=== PATIENT | female | born 1950 | race Caucasian/White ===

== ENCOUNTER 2017-10-21 00:21 | Emergency (ER) | payer MEDICARE ==
[~2017-10-21] VITALS: Ht 160 cm; Wt 55.8 kg
[~2017-10-21 00:21] MED LIST: ASPI-816 PO; CALC-635 PO; CALC600T63 PO; HYDR-2966 PO; LORA-802 PO; METH500T6 PO; OMEG-11 PO; SIMV-49 PO; SIMV-54 PO
--- NOTE | 2017-10-21 01:18 | ER Report ---
History and Physical Time Seen By MD: 01:16 Hx. of Stated Complaint: PT HAS SEVERE PAIN IN RIGHT UPPER LEG, KNEE, AND HIP. HPI/ROS CHIEF COMPLAINT: Right leg and back pain HISTORY OF PRESENT ILLNESS: 67-year-old female presents a to the ER complaining of severe right lower leg and back pain for 3 days. She recalls no traumatic injury. She states this feels similar to sciatica. She had in her left leg many years ago. She's been trying ibuprofen and heating pad without relief. She notes no skin rash or swollen joints. She notes pain with movement. She changes position he gets comfortable only for brief period before the pain begins to throb and become more intense. She notes no rash to suggest shingles. She notes no fever or chills. She denies a history of degenerative disc disease of her lumbar spine. REVIEW OF SYSTEMS: Respiratory: No cough, no dyspnea. Cardiovascular: No chest pain, no palpitations. Gastrointestinal: No vomiting, no abdominal pain. Musculoskeletal: As above Allergies: Coded Allergies: Penicillins (Unverified Allergy, Unknown, RASH, 10/21/17) Home Meds Active Scripts Prednisone 10 Mg Tab (PREDNISONE 10 MG TAB) 10 Mg Tablet, 10 MG PO QDAY Y for reduce inflammation, #5 1 tab daily for 5 days Prov:BOBGETY Dom DO 10/21/17 Oxycodone Hcl/Acetaminophen (PERCOCET 5-325 MG TABLET) 1 Each Tablet, 1 EACH PO Q4-6H Y for PAIN, #12 Prov:BOBELIDA Dom DO 10/21/17 Simvastatin (SIMVASTATIN) 20 Mg Tablet, 1 TAB PO HS, #90 TAB 1 Refill Prov:JOSS PICHARDO MD 05/23/17 Hydrochlorothiazide (HYDROCHLOROTHIAZIDE) 25 Mg Tablet, 1 TAB PO QAM, #90 TAB 3 Refills TAKE ONE TABLET BY MOUTH EVERY DAY Prov:JOSS PICHARDO MD 11/15/16 Reported Medications Calcium Carbonate (CALCIUM) 600 Mg Tablet, 600 MG PO 08/30/16 Methylcellulose (FIBER) 500 Mg Tablet, 1 TAB PO QDAY, TAB 10/20/15 Aspirin (Children's Aspirin) 81 Mg Tab.chew, 1 TAB PO DAILY, #100 TAB 4 Refills 09/29/14 [place]-3 Fatty Acids/Fish Oil (FISH OIL 1,000 MG CAPSULE) 1 Each Capsule, 1 EACH PO QDAY, CAPSULE 09/17/14 Past Medical/Surgical History Past Medical History Cardiovascular: Reports hx of: hyperlipidemia (was on statin in past. ) hypertension (Tx with hctz since early . ) Gastrointestinal: Reports hx of: diverticulosis Genitourinary: Reports hx of: urinary tract infection (12/25. tx with cipro. ESR and CRP were quite elevated. ) Events: REPORTS HX OF: Other events ([id number]. Annual in Mid-09/26. ) Past Surgical History HEENT: Reports hx of: tonsillectomy Gynecologic: Reports hx of: hysterectomy (KIRT/BSO 1995) Integumentary: Reports hx of: other integumentary surg (Skin lesion removed on L hand per Dr. Victoria.) Reviewed Nurses Notes: Yes Old Medical Records Reviewed: Yes Hx Smoking: No Smoking Status: Never Smoker Hx Substance Use Disorder: No Hx Alcohol Use: Yes Constitutional Vital Sign - Last 24 Hours 10/21/17 10/21/17 10/21/17 10/21/17 00:27 00:30 00:51 01:21 Temp 97.9 Pulse 75 84 66 Resp 16 B/P (MAP) 159/94 (115) 159/94 Pulse Ox 93 95 93 O2 Delivery Room Air 10/21/17 10/21/17 10/21/17 10/21/17 01:26 01:56 02:26 02:31 Pulse 72 62 67 70 Pulse Ox 95 92 86 90 10/21/17 10/21/17 02:42 02:46 B/P (MAP) 135/78 (97) Pulse Ox 88 Physical Exam General Appearance: The patient is alert, has no immediate need for airway protection and no current signs of toxicity. Vital signs stable, afebrile, mild distress Eyes: Pupils equal and round no injection. Respiratory: Chest is non tender, lungs are clear to auscultation. Cardiac: regular rate and rhythm Gastrointestinal: Abdomen is soft and non tender, no masses, bowel sounds normal. Musculoskeletal: Neck: Neck is supple and non tender. Back: There is no tenderness in the midline. There is no tenderness on palpation of the SI joints. There is no tenderness of the lumbar paraspinous musculature. There is notable tenderness over the course of the right sciatic nerve, there is no tenderness over the trochanter bursa area on the right. Patient has good range of motion of all joints without tenderness on compression or Aki maneuver. There is no knee joint effusion. Ankle is unremarkable. The right lower externally is neurovascularly intact. Extremities have full range of motion and are non tender. Skin: No rashes or lesions. DIFFERENTIAL DIAGNOSIS: After history and physical exam differential diagnosis was considered for back pain including but not limited to muscular pain, herniated disc, spine fracture, sciatica, intra-abdominal causes and urinary tract infection. Medical Decision Making ED Course/Re-evaluation ED Course Patient was admitted to an examination room. H&P was done. The differential diagnoses was considered. On clinical examination. Patient has significant right lower extremity pain for 3 days. She has a nonfocal neurologic examination. There is no inflammation of any of the joints or pain on movement of the joints. Symptoms are consistent with sciatica. Patient's medicated with Dilaudid 1 mg IM. Zofran sublingual and prednisone 40 mg by mouth. She is discharged home on low-dose prednisone course. She is advised ibuprofen and a prescription for Percocets provided for temporary pain relief. She is advised to follow-up with her primary care Dr Pichardo if unimproved in 3-5 days. Decision to Disposition Date: Oct 21, 2017 Decision to Disposition Time: 02:34 Depart Departure Latest Vital Signs Vital Signs Date Time Temp Pulse Resp B/P (MAP) Pulse Ox O2 Delivery O2 Flow Rate FiO2 10/21/17 02:46 88 10/21/17 02:42 135/78 (97) 10/21/17 02:31 70 10/21/17 00:30 97.9 16 Room Air Impression: Primary Impression: Right leg pain Additional Impression: Sciatica Condition: Improved Disposition: HOME OR SELF-CARE Referrals: JOSS PICHARDO MD (PCP) New Scripts Prednisone 10 Mg Tab (PREDNISONE 10 MG TAB) 10 Mg Tablet 10 MG PO QDAY Y for reduce inflammation, #5 1 tab daily for 5 days Prov: ELIDA ROJAS DO 10/21/17 Oxycodone Hcl/Acetaminophen (PERCOCET 5-325 MG TABLET) 1 Each Tablet 1 EACH PO Q4-6H Y for PAIN, #12 Prov: ELIDA ROJAS DO 10/21/17 Patient Instructions: Sciatica (ED) Additional Instructions: Continue ibuprofen 200 mg 3 tablets 3 times a day with food Apply heating pad to the affected area Follow-up with your primary care physician if unimproved in 3-5 days Problem Qualifiers Additional Impression: Sciatica Laterality: right Qualified Codes: M54.31 - Sciatica, right side ELIDA ROJAS DO Oct 21, 2017 01:18
[2017-10-21] MEDS ORDERED: HYDROmorphone(ER ONLY) 1 MG/ML IM ONE (01:35)
[2017-10-21] MEDS ORDERED: ONDANSETRON 4 MG ODT TABDP SL ONE (01:35)
[2017-10-21] MEDS ORDERED: predniSONE 20 MG TAB PO ONE (01:35)
[2017-10-21] MEDS ORDERED: oxyCODONE/ACETAMIN 5/325MG TH 2 TAB/BOTTLE PO ONE (02:35)
[2017-10-21] MEDS ORDERED: PRED-1 PO (02:38)
[2017-10-21] MEDS ORDERED: OXYC-865 PO (02:38)
[2017-10-21 02:42] VITALS: BP 135/78
[2017-10-22] MEDS ORDERED: CYCL10TA29 PO (11:59)
[2017-10-22] MEDS ORDERED: MELO-207 PO (11:59)
== END 2017-10-21 02:49 | disposition home or self-care (01) ==
LOC: ER 00:37
DX: M54.31 Sciatica, right side (principal)
CPT/HCPCS: 96372; 99283; J1170; J7512; Q0162; S0119

== ENCOUNTER → 2017-10-22 | Outpatient (CLI) | payer MEDICARE ==
[~2017-10-22] MED LIST changes: +CYCL10TA29 PO; +MELO-207 PO; +OXYC-865 PO; +PRED-1 PO
[2017-10-22 12:17] LABS: PLATELET COUNT, AUTOMATED 235 K/uL (150-450)
== END ==
LOC: LAB 12:00
PROVIDERS: ATTEND Emergency Medicine
DX: M54.9 Dorsalgia, unspecified (principal)
CPT/HCPCS: 36415; 82040; 82247; 82310; 82374; 82435; 82565; 82947; 84075; 84132; 84155; 84295; 84450; 84460; 84520; 85025; 86140

== ENCOUNTER 2017-11-21 16:03 | Outpatient (RCR) | payer MEDICARE ==
--- NOTE | 2017-10-30 16:17 | PT INITIAL EVALUATION ---
MEDICAL DIAGNOSIS: R leg pain TREATMENT DIAGNOSIS: same DATE OF ONSET: 10/15/17 SUBJECTIVE: Leigh Ann Potts presents to physical therapy with complaints of R leg pain that started two weeks and feels like "sciatic" that she had on her L side 4-5 years ago. She reports that the R leg pain started for no apparent reason. She reports that she feels like the injury is getting better. She reports constant thigh pain and denies any low back pain. Furthermore, she reports that she feels the pain in the R posterior buttock wraps around into the groin down the medial thigh and into the anterior lower leg. She rates the pain to be a 6/10. She states that the medications do take the edge off the R leg pain, however, they are not fixing the pain. She reports increased pain with bending and walking. She reports decreased pain with sitting and lying. She denies the following symptoms: uncontrolled bladder, abnormal gait, imaging , recent accident or surgery, and unexplained weight loss. She does report night pain and states that it is typically worse at night. She reports that correcting her posture has no effect on her R leg pain. REHAB PROBLEM LIST: Increased Pain Decreased ROM Decreased Strength Decreased Endurance Decreased Function Decreased ADL's PREVIOUS MEDICAL HISTORY: See EMR OCCUPATION: Retired OBJECTIVE: Posture: She demonstrated minimal forward head, rounded shoulders, and lumbar lordosis ROM: Trunk AROM: flexion: NIL with no pain, extension: NIL with no pain, side gliding R: minimal restriction with pain, side gliding L: NIL with no pain. Strength: R hip flexion: 4/5. L hip flexion: 4+/5. B hip abduction, extension, adduction, B knee flexion and extension, B ankle PF and DF: 4+/5. She demonstrated 0/10 pain with MMT. Palpation: TTP: posterior R buttock into R groin into R medial thigh and into R anterior lower leg Sensation: Intact L2-S2 Special Tests: Repeated trunk extension in lying: stretch during test and same following test and no range of motion improvements in side gliding R. Repeated trunk extension in lying with hips displaced to the L: stretch during test and worse following tests with decreased range of motion in side gliding R. Repeated trunk extension in lying with hips displaced to the R: stretch during test and better following test with improve side gliding R. Mobility: Independent Gait: Normal gait mechanics ASSESSMENT: Leigh Ann will benefit from skilled physical therapy to improve function and QOL. Based on this examination, it appears that her provisional classification is posterior lateral derangement that responded well to extension and lateral based principles, however, it might take 2-4 more sessions to uphold or change the provisional classification. Short Term Goals 2 weeks: Pt will demonstrate centralized low back pain versus R leg pain to improve function and QOL. 4 weeks: Pt will demonstrated abolished low back pain and R leg pain to improve function and QOL. 6 weeks: Pt will improve B LE strength from baseline to 4+/5 or greater to improve function and QOL. Patient's Goals abolish R leg pain PLAN: Patient to be seen for Manual Therapy/STM/MET Strengthening/condition Range of Motion Spinal Stabilization Work Hardening/Cond Stretching Neuromuscular Re-ed Closed Chain Program Posture/Body mechanics Home Exercise Program Therapeutic Activities 2x/Week for 6 Weeks If you have any questions, comments, or concerns about this report or plan, please contact me at . Thank you, Alex Calle, PT, DPT MTDD
== END 2017-11-21 18:00 | disposition home or self-care (01) ==
LOC: PT 16:03
PROVIDERS: ATTEND Emergency Medicine
DX: M79.604 Pain in right leg (principal)
CPT/HCPCS: 97162

== ENCOUNTER → 2018-01-30 | Outpatient (CLI) | payer MEDICARE ==
[~2018-01-30] MED LIST changes: -ASPI-816 PO; +ASPI-870 PO
[2018-01-30 08:41] LABS: PLATELET COUNT, AUTOMATED 236 K/uL (150-450)
[2018-01-30 08:58] LABS: LDL CHOLESTEROL 58 mg/dl
== END ==
LOC: LAB 08:05
PROVIDERS: ATTEND Emergency Medicine
DX: Z00.00 Encounter for general adult medical examination without abnormal findings (principal); E78.00 Pure hypercholesterolemia, unspecified; I10 Essential (primary) hypertension
CPT/HCPCS: 36415; 82040; 82247; 82310; 82374; 82435; 82465; 82565; 82947; 83718; 84075; 84132; 84155; 84295; 84450; 84460; 84478; 84520; 85025

== ENCOUNTER → 2018-02-19 | Outpatient (CLI) | payer MEDICARE ==
[~2018-02-19] MED LIST changes: +ROSU10TA13 PO
--- NOTE | 2018-02-20 08:37 | RADIOLOGY IMAGING REPORT ---
FACILITY: [facility] - [place] PATIENT NAME: MARTITA SETHI : [id number] MR: [id number] V: [id number] EXAM DATE: ORDERING PHYSICIAN: JOSS PICHARDO TECHNOLOGIST: Karma Stratton PROCEDURE:BILATERAL DIGITAL SCREENING MAMMOGRAM WITH CAD ASSISTED INTERPRETATION & 3D TOMOSYNTHESIS COMPARISON:Prior mammograms 11/05/16, 10/18/14, 10/12/13, 10/08/12, 09/05/11. INDICATIONS:screening FINDINGS: Moderately heterogeneous fibroglandular tissue is seen throughout the breasts. The parenchymal pattern has remained stable allowing for difference in mammographic technique & patient positioning. There is no evidence of malignant appearing mass, malignant appearing calcifications or other secondary sign of malignancy in either breast. DIAGNOSTIC CATEGORY 1--NEGATIVE. RECOMMENDATIONS: ROUTINE MAMMOGRAM AND CLINICAL EVALUATION. IMPRESSION: BIRADS 1: Negative No significant abnormality is seen. Dictated by: Opal Cortez M.D. on 02/19/2018 at 17:46 Transcribed by: ALAN on 02/20/2018 at 8:32 Approved by: Opal Cortez M.D. on 02/20/2018 at 8:37 [facility]
== END ==
LOC: MAMO 02:18
PROVIDERS: ATTEND Emergency Medicine
DX: Z12.31 Encounter for screening mammogram for malignant neoplasm of breast (principal)
CPT/HCPCS: 77063; 77067

== ENCOUNTER → 2018-03-13 | Outpatient (CLI) | payer MEDICARE ==
[~2018-03-13] MED LIST changes: +ROSU20TA23 PO
== END ==
LOC: LAB 08:09
PROVIDERS: ATTEND Emergency Medicine
DX: E78.00 Pure hypercholesterolemia, unspecified (principal)
CPT/HCPCS: 36415; 82465; 83718; 84478

== ENCOUNTER → 2018-04-15 | Outpatient (CLI) | payer MEDICARE | LOC: LAB 08:08 | PROVIDERS: ATTEND Emergency Medicine | DX: E78.00 Pure hypercholesterolemia, unspecified (principal) | CPT/HCPCS: 36415; 82465; 83718; 84478 ==

== ENCOUNTER → 2019-02-20 | Outpatient (CLI) | payer MEDICARE ==
[~2019-02-20] MED LIST changes: -ROSU10TA13 PO; +ROSU10TA5 PO; -ROSU20TA23 PO; +ROSU20TA24 PO
[2019-02-20 08:11] LABS: PLATELET COUNT, AUTOMATED 232 K/uL (150-450)
[2019-02-20 08:27] LABS: LDL CHOLESTEROL 45 mg/dl
== END ==
LOC: LAB 07:58
PROVIDERS: ATTEND Emergency Medicine
DX: E78.00 Pure hypercholesterolemia, unspecified (principal); I10 Essential (primary) hypertension
CPT/HCPCS: 36415; 82040; 82247; 82310; 82374; 82435; 82465; 82565; 82607; 82947; 83718; 84075; 84132; 84155; 84295; 84450; 84460; 84478; 84520; 85025

== ENCOUNTER → 2019-02-27 | Outpatient (CLI) | payer MEDICARE ==
[~2019-02-27] MED LIST changes: +CALC-29 PO
[2019-02-27 09:51] LABS: PLATELET COUNT, AUTOMATED 232 K/uL (150-450)
[2019-02-27 10:15] LABS: LDL CHOLESTEROL 42 mg/dl
--- NOTE | 2019-02-27 11:35 | RADIOLOGY IMAGING REPORT ---
FACILITY: [facility] PATIENT NAME: Leigh Ann Potts : 1950 MR: [id number] V: [id number] EXAM DATE: ORDERING PHYSICIAN: JOSS PICHARDO TECHNOLOGIST: Location: [facility] [place] Patient: Leigh Ann Potts : 1950 Visit/Account:[id number] Date of Sevice: 02/27/2019 DEXA Scan Clinical history: Postmenopausal estrogen deficiency. Comparison: DEXA scan from 10/12/2013. LUMBAR SPINE: The bone mineral density (BMD) measured from L1-L3 correlates with a Z-score of 2.9 and a T-score of 1 which is Normal as defined by the World Health Organization. The corresponding risk of fracture in the lumbar spine is Not increased compared with a young adult reference population. This value has increase by 8.9 % since the prior study. More than 5% change is considered significant. HIP: Bone mineral density (BMD) measured in the LEFT total hip region correlates with a Z-score 0.5 and a T-score of -1.1 which is osteopenia as defined by the World Health Organization. The corresponding r isk of fracture in the hip is 2-3 times increased compared to a young adult reference population. Thi s value has decrease by 3.9 % since the prior study. More than 5% change is considered significant. T score left femoral neck -2 Bone mineral density (BMD) measured in the Femoral Neck region measures 0.762 g/cm?. IMPRESSION: 1. Lumbar spine: Normal. There has been 8.9% increase in the bone mineral density since the previou s exam. 2. Left Total Hip: Osteopenia. There has been 3.9% decrease in the bone mineral density since the p revious exam. 3. Femoral Neck: Bone Mineral Density is 0.762 g/cm? The next DEXA scan of this patient should include the following sites: L1-L4 and the left hip. FRAX? WHO Fracture Risk Assessment Tool link: <http://www.shef.ac.uk/FRAX/tool.jsp?locationValue=9> PLEASE NOTE: 1) The World Health Organization defines low BMD as follows: T-score Normal > -1 Osteopenia < -1 and > -2.5 Osteoporosis < -2.5 without fractures Established osteoporosis < -2.5 with fractures 2) In general, you may wish to consider: Diagnosis Treatment Follow-up DEXA Normal BMD Prevention 2-3 years Osteopenia Prevention/therapy 1-2 years Osteoporosis Therapy Yearly 3) Fracture risk estimated from the T-score is more accurate for vertebral fractures (often spontane ous) than for hip fractures. Report Dictated By: Opal Cortez MD at 02/27/2019 11:30 AM Report E-Signed By: Opal Cortez MD at 02/27/2019 11:32 AM WSN:[id number]
== END ==
LOC: LAB 09:28
PROVIDERS: ATTEND Emergency Medicine
DX: D72.820 Lymphocytosis (symptomatic) (principal); M79.10 Myalgia, unspecified site; E78.00 Pure hypercholesterolemia, unspecified; I10 Essential (primary) hypertension; M85.80 Other specified disorders of bone density and structure, unspecified site; Z78.0 Asymptomatic menopausal state
CPT/HCPCS: 36415; 77080; 82040; 82247; 82306; 82310; 82374; 82435; 82465; 82565; 82947; 83718; 84075; 84132; 84155; 84295; 84443; 84450; 84460; 84478; 84520; 85007; 85027

== ENCOUNTER → 2019-03-02 | Outpatient (CLI) | payer MEDICARE ==
--- NOTE | 2019-03-03 10:40 | RADIOLOGY IMAGING REPORT ---
FACILITY: [facility] PATIENT NAME: MARTITA SETHI : [id number] MR: [id number] V: [id number] EXAM DATE: ORDERING PHYSICIAN: JOSS PICHARDO TECHNOLOGIST: Karma Stratton PROCEDURE: BILATERAL DIGITAL SCREENING MAMMOGRAM WITH CAD ASSISTED INTERPRETATION & 3D TOMOSYNTHESIS REASON FOR STUDY: Screening FAMILY HISTORY OF BREAST CANCER: None. BREAST PROCEDURES/TREATMENTS: None. COMPARISON: Prior mammograms 02/19/18, 11/05/16, 10/18/14, 10/12/13, 10/08/12. VIEWS OBTAINED: 2D & 3D full field CC & MLO. BREAST DENSITY: The breasts are heterogeneously dense which can obscure small masses. MAMMOGRAM FINDINGS: The parenchymal pattern has remained stable allowing for difference in mammographic technique & patient positioning. IMPRESSION: BIRADS 1: Negative. DIAGNOSTIC CATEGORY 1--NEGATIVE. RECOMMENDATIONS: ROUTINE MAMMOGRAM AND CLINICAL EVALUATION. Dictated by: Opal Cortez M.D. on 03/02/2019 at 17:24 Transcribed by: ALAN on 03/03/2019 at 8:11 Approved by: Opal Cortez M.D. on 03/03/2019 at 10:39 [facility]
== END ==
LOC: MAMO 01:53
PROVIDERS: ATTEND Emergency Medicine
DX: Z12.31 Encounter for screening mammogram for malignant neoplasm of breast (principal)
CPT/HCPCS: 77063; 77067

== ENCOUNTER → 2019-03-25 | Outpatient (CLI) | payer MEDICARE | LOC: LAB 07:55 | PROVIDERS: ATTEND Emergency Medicine | DX: E78.00 Pure hypercholesterolemia, unspecified (principal) | CPT/HCPCS: 36415; 82465; 83718; 84478 ==

== ENCOUNTER → 2019-04-28 | Outpatient (CLI) | payer MEDICARE ==
[~2019-04-28] MED LIST changes: +PRAV20TA66 PO
[2019-04-28 08:06] LABS: PLATELET COUNT, AUTOMATED 222 K/uL (150-450)
== END ==
LOC: LAB 07:45
PROVIDERS: ATTEND Emergency Medicine
DX: E78.00 Pure hypercholesterolemia, unspecified (principal); I10 Essential (primary) hypertension
CPT/HCPCS: 36415; 82465; 83718; 84478; 85025